=== PATIENT | male | born 1960 | race Caucasian/White ===

== ENCOUNTER 2016-10-18 12:08 | Emergency (ER) | payer OTHER ==
--- NOTE | ~2016-10-18 | CT71 ---
[facility] A Service of [facility] RADIOLOGY TEXT RESULTS PATIENT: JAX QUEVEDO LOCATION: SED : 60 UNIT #: [id number] AGE: [address]: Bree Neal SEX: M ORDER DR: [id number] [address] [address] [id number] MR#: [id number] #: [id number] NAME: JAX QUEVEDO. : 1960 SEX: M STUDY DATE/TIME: 10/18/2016 12:09 UNIT: SED ROOM: STUDY DESCRIPTION: CT Head Wo Contrast Attending Physician: Bree Neal Pa-C Ordering Physician: Bree Neal Pa-C MEDICAL IMAGING REPORT This report is preliminary unless electronic signature is present. EXAM CT head, without contrast, 10/17/2016. HISTORY Head injury. Laceration and headache on top of head. Working car underneath; raised up and hit head on bottom car. No loss of consciousness. TECHNIQUE CT head performed skull base to vertex without intravenous contrast. This CT exam was performed with one or more of the following radiation dose reduction techniques: automatic exposure control, adjustment of mA and/or kV according to patient size, and iterative reconstruction. COMPARISON No prior studies for comparison. FINDINGS Brain stem unremarkable. Cerebellum and cerebral hemispheres show normal mays matter-white matter differentiation. No hemorrhage. No evidence of acute cortical ischemia. Midline structures nondisplaced. Basal ganglia intact. Ventricles, cisterns and sulci within normal limits of size and contour. No intra- or extraaxial mass effect or abnormal intracranial fluid collection. Scattered cavernous carotid arterial calcifications. The intraorbital soft tissues are unremarkable. The visualized paranasal sinuses and mastoid air cells show mucosal thickening in right mastoid air cells, with some small air-fluid levels present; correlate with any clinic signs or symptoms of acute right mastoiditis. Focal area of somewhat linear subcutaneous increased density in the right posterosuperior parietal scalp, likely reflecting the patient's acute trauma. No subcutaneous air or radiodense foreign body. Correlate with exam. IMPRESSION STS. [facility] A Service of [facility] RADIOLOGY TEXT RESULTS PATIENT: JAX QUEVEDO LOCATION: SED : 60 UNIT #: [id number] AGE: [address]: Bree Neal PAC SEX: M ORDER DR: 1. Brain appears normal. If patient has ongoing neurologic symptoms, consider follow-up imaging. 2. No fracture. 3. Linear area of increased density, right posterosuperior parietal scalp, likely reflecting the patient's acute trauma and stated laceration. I see no subcutaneous air or radiodense foreign body. 4. Mucosal thickening and small air-fluid levels in the right mastoid air cells suggesting acute mastoiditis. Correlate clinically. Dictated by... Boy Farley M.D. THIS IS AN ELECTRONICALLY VERIFIED REPORT Boy Farley M.D. at 10/18/2016 6:48 PM GE/brandi TD: 10/18/2016 14:35 JOB #: [id number] MEDICAL IMAGING REPORT Page 1 of 1
[~2016-10-18 12:08] MED LIST: ASA PO; LEXAPRO PO; METFORMIN PO; PLAVIX PO; PREVACID PO; STOMACH MED
== END 2016-10-18 13:40 | disposition home or self-care (01) ==
LOC: SED 12:08
DX: S01.01XA Laceration without foreign body of scalp, initial encounter (principal); E11.9 Type 2 diabetes mellitus without complications; I25.2 Old myocardial infarction; Z88.5 Allergy status to narcotic agent; Z79.84 Long term (current) use of oral hypoglycemic drugs; Z23 Encounter for immunization; W22.8XXA Striking against or struck by other objects, initial encounter; Y93.89 Activity, other specified; Y92.69 Other specified industrial and construction area as the place of occurrence of the external cause; Y99.0 Civilian activity done for income or pay
CPT/HCPCS: 12002; 70450; 90471; 90715; 99284